=== PATIENT | male | born 1960 | race Asian ===

== ENCOUNTER 2016-11-11 14:14 | Emergency (ER) | payer BC ==
[~2016-11-11] VITALS: Ht 165.1 cm; Wt 71.0 kg
[2016-11-11] MEDS ORDERED: HYDR25TA PO (14:21)
[2016-11-11 14:55] LABS: APPEARANCE,URINE CLEAR (CLEAR); GLUCOSE, URINE (UA) NEGATIVE (NEGATIVE); KETONES,URINE NEGATIVE (NEGATIVE); LEUKOCYTE ESTERASE ,URINE SMALL (NEGATIVE); OCCULT BLOOD,URINE NEGATIVE (NEGATIVE); PROTEIN,URINE NEGATIVE (NEGATIVE)
[2016-11-11 14:58] LABS: ADD UA MICROSCOPIC YES; RBC,URINE 0-2 /HPF (0-2); WBC,URINE None Seen /HPF (0-5)
[2016-11-11] MEDS ORDERED: SODIUM CHLORIDE 0.9% 1,000 ML IV ONE (15:05)
[2016-11-11] MEDS ORDERED: KETOROLAC TROMETHAMINE 30 MG/ML VIAL IVP ONE (15:15)
[2016-11-11] MEDS ORDERED: ONDANSETRON HCL 4 MG/2 ML VIAL IVP ONE (15:15)
[2016-11-11 15:19] LABS: BASOPHILS % (AUTO) 0.3 % (0.0-2.0); EOSINOPHILS % (AUTO) 0.1 % (1.0-6.0); HEMATOCRIT 48.7 % (41-53); HEMOGLOBIN 15.7 g/dL (13.5-17.5); LYMPHOCYTES # (AUTO) 0.8 K/uL (1.0-4.8); LYMPHOCYTES % (AUTO) 9.9 % (22.0-44.0); MEAN CORPUSCULAR HEMOGLOBIN 30.6 pg (26.0-34.0); MEAN CORPUSCULAR HGB CONC 32.3 G/dL (31.0-37.0); MEAN CORPUSCULAR VOLUME 95 fL (80-100); MONOCYTES # (AUTO) 0.3 K/uL (0.1-1.0); MONOCYTES % (AUTO) 3.2 % (2.0-9.0); NEUTROPHILS # (AUTO) 7.4 K/uL (1.8-7.7); NEUTROPHILS % (AUTO) 86.5 % (40.0-70.0); PLATELET COUNT (AUTO) 252 K/uL (150-450); RED BLOOD CELL COUNT(AUTO) 5.15 MIL/uL (4.50-5.90); WHITE BLOOD COUNT (AUTO) 8.5 K/uL (4.5-11.0)
[2016-11-11 15:31] LABS: ANION GAP 8 mmol/L (8-16); CALCIUM, TOTAL 9.4 mg/dL (8.8-10.5); CARBON DIOXIDE 28 mmol/L (22-29); CHLORIDE 100 mmol/L (98-107); CREATININE 1.08 mg/dL (0.60-1.30); GLOMERULAR FILTR. RATE CALC > 60 mL/min (>60); POTASSIUM 3.4 mmol/L (3.5-5.1); SODIUM SERUM 136 mmol/L (136-145); UREA NITROGEN, BLOOD 12 mg/dL (7-18)
[2016-11-11 15:35] LABS: RBC MORPHOLOGY COMMENT NORMAL RBC MORPH
[2016-11-11 15:46] LABS: ALANINE AMINOTRANSFERASE 52 U/L (12-78); ALBUMIN 4.6 g/dL (3.4-5.0); ASPARTATE AMINOTRANSFERASE 31 U/L (15-37); BILIRUBIN,TOTAL 0.8 mg/dL (0.1-1.0); TOTAL PROTEIN, SERUM 8.9 g/dL (6.4-8.2)
[2016-11-11 16:54] VITALS: BP 114/76
== END 2016-11-11 17:13 | disposition home or self-care (01) ==
LOC: EMS 14:16
DX: N13.8 Other obstructive and reflux uropathy (principal); N40.0 Benign prostatic hyperplasia without lower urinary tract symptoms; N41.9 Inflammatory disease of prostate, unspecified
CPT/HCPCS: 36415; 51702; 74176; 80053; 81001; 83690; 85025; 96361; 96374; 96375; 99285; J1885; J2405; J7030

== ENCOUNTER 2016-11-13 09:36 | Emergency (ER) | payer BC ==
[~2016-11-13] VITALS: Ht 165.1 cm; Wt 72.5 kg
[~2016-11-13 09:36] MED LIST: HYDR25TA PO
[2016-11-13] MEDS ORDERED: CIP250 PO (09:47)
[2016-11-13] MEDS ORDERED: TAMS0.4C32 PO (09:47)
[2016-11-13] MEDS ORDERED: TRAM50TA4 PO (09:47)
[2016-11-13 11:58] VITALS: BP 128/88
== END 2016-11-13 12:00 | disposition home or self-care (01) ==
LOC: EMS 09:37
DX: N40.0 Benign prostatic hyperplasia without lower urinary tract symptoms (principal); N13.9 Obstructive and reflux uropathy, unspecified; I10 Essential (primary) hypertension
CPT/HCPCS: 99283; 99284

== ENCOUNTER 2018-03-23 08:00 | Emergency (ER) | payer BC, OTHER ==
[~2018-03-23] VITALS: Ht 167.6 cm; Wt 66.4 kg
[~2018-03-23 08:00] MED LIST changes: +CIP250 PO; +TAMS0.4C32 PO; +TRAM50TA4 PO
[2018-03-23] MEDS ORDERED: TAMS0.4C32 PO (08:35)
[2018-03-23 09:24] VITALS: BP 138/86
[2018-03-23 09:33] LABS: APPEARANCE,URINE CLEAR (CLEAR); BILIRUBIN,URINE NEGATIVE (NEGATIVE); GLUCOSE, URINE (UA) NEGATIVE (NEGATIVE); KETONES,URINE NEGATIVE (NEGATIVE); LEUKOCYTE ESTERASE ,URINE NEGATIVE (NEGATIVE); NITRATE,URINE NEGATIVE (NEGATIVE); OCCULT BLOOD,URINE LARGE (NEGATIVE); PH,URINE 7.5 (5.0-8.0); PROTEIN,URINE NEGATIVE (NEGATIVE); UROBILINOGEN,URINE 0.2 mg/dL (<=1.0)
[2018-03-23 09:45] LABS: BACTERIA,URINE None Seen /HPF (None Seen); RBC,URINE 51-100 /HPF (0-2); WBC,URINE None Seen /HPF (0-5)
== END 2018-03-23 09:59 | disposition home or self-care (01) ==
LOC: EMS 08:01
DX: R33.9 Retention of urine, unspecified (principal); I10 Essential (primary) hypertension
CPT/HCPCS: 51702; 99284